=== PATIENT | male | born 1960 | race American Indian/Alaskan Native ===

== ENCOUNTER 2016-07-21 09:02 | Day surgery (SDC) | payer OTHER ==
[2016-06-15 08:11] VITALS: BMI 22.8
[2016-07-21] MEDS: Lactated Ringer's 500 ML IV ONE (10:52)
[2016-07-21] MEDS ORDERED: Midazolam 2 MG/2 ML VIAL ONE (11:57)
[2016-07-21] MEDS ORDERED: Propofol 10 mg/ml Inj (20 ML) ONE (12:00)
[2016-07-21 12:31] VITALS: TEMP 97.2; O2SAT 100
[2016-07-21 12:41] VITALS: BP 112/79; PULSE 72; RESP 17
== END 2016-07-21 12:59 | disposition home or self-care (01) ==
LOC: H.ENDO 09:02
PROVIDERS: ATTEND Internal Medicine Gastroenterology
DX: R10.13 Epigastric pain (principal); B37.81 Candidal esophagitis; K31.9 Disease of stomach and duodenum, unspecified